=== PATIENT | male | born 1990 | race Caucasian/White ===

== ENCOUNTER 2017-06-22 19:02 | Observation (INO) | payer OTHER ==
[~2017-06-22] VITALS: Ht 182.9 cm; Wt 82.0 kg
[2017-06-23] VITALS (10 sets, daily range): BP systolic 124–147; BP diastolic 60–77; PULSE 68–88; RESP 17–20; Ht 182.9 cm; Wt 82.0 kg
[2017-06-23] MEDS ORDERED: HYDR28.39 RC (01:07)
[2017-06-23] MEDS ORDERED: LACT1CAP72 PO (01:07)
[2017-06-23] MEDS ORDERED: IBUP50DR52 PO (01:07)
[2017-06-23] MEDS ORDERED: OXYC-438 PO (01:07)
[2017-06-23] MEDS ORDERED: CLON0.5T4 PO (01:07)
[2017-06-23] MEDS ORDERED: CANA1000R PR (01:07)
[2017-06-23] MEDS ORDERED: CATTTS1 TD (01:07)
[2017-06-23] MEDS ORDERED: ALBU90AE INHALATION (01:07)
[2017-06-23] MEDS ORDERED: ESCI10TA PO (01:07)
[2017-06-23] MEDS ORDERED: ALBUTEROL 0.083% (NEB) 2.5 MG/3 ML AMP HHN PRN (01:30)
[2017-06-23] MEDS ORDERED: ONDANSETRON 4 MG TAB PO PRN (03:00)
[2017-06-23] MEDS ORDERED: BISACODYL (EC) 5 MG TAB PO PRN (03:00)
[2017-06-23] MEDS ORDERED: ACETAMINOPHEN 325 MG TAB PO PRN (03:00)
[2017-06-23] MEDS ORDERED: DOCUSATE SODIUM 100 MG CAP PO PRN (03:00)
[2017-06-23] MEDS ORDERED: NACL 0.9% 3 ML SYG IV SCH (03:00)
[2017-06-23] MEDS ORDERED: LORAZEPAM 2 MG INJ IV PRN (05:00)
[2017-06-23] MEDS: FAMOTIDINE 20 MG TAB PO SCH ×2 (05:27→20:40)
[2017-06-23] MEDS: ALBUTEROL 0.083% (NEB) 2.5 MG/3 ML AMP HHN SCH ×4 (06:09→20:02)
[2017-06-23 07:34] LABS: BASOPHILS % 0.2 % (0.0-2.0); EOSINOPHILS % 0.1 % (0.0-7.0); HEMATOCRIT 37.5 % (42.0-52.0); HEMOGLOBIN 13.2 g/dl (14.0-18.0); LYMPHOCYTES # 0.8 10^3/ul (0.8-2.9); LYMPHOCYTES % 6.7 % (15.0-51.0); MEAN CORPUSCULAR HEMOGLOBIN 32.8 pg (29.0-33.0); MEAN CORPUSCULAR HGB CONC 35.2 g/dl (32.0-37.0); MEAN CORPUSCULAR VOLUME 93.1 fl (82.0-101.0); MEAN PLATELET VOLUME 10.6 fl (7.4-10.4); MONOCYTE # 0.6 10^3/ul (0.3-0.9); MONOCYTES % 5.7 % (0.0-11.0); NEUTROPHIL # 9.9 10^3/ul (1.6-7.5); PLATELET COUNT 178 10^3/UL (140-415); RED BLOOD COUNT 4.03 10^6/ul (4.70-6.10); RED CELL DISTRIBUTION WIDTH 11.6 % (11.5-14.5); WHITE BLOOD COUNT 11.3 10^3/ul (4.8-10.8)
[2017-06-23 08:02] LABS: CALCIUM 9.1 mg/dl (8.4-10.2); CHOL/HDL RATIO 2.4 RATIO; CREATININE 0.94 mg/dl (0.61-1.24); POTASSIUM 3.8 mmol/L (3.5-5.1)
[2017-06-23 08:23] LABS: THYROID STIMULATING HORMONE 0.223 MIU/L (0.465-4.680)
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
[2017-06-23] MEDS: predniSONE 20 MG TAB PO SCH (09:09)
[2017-06-23] MEDS ORDERED: ALBUTEROL HFA 8 GM INHALER INH PRN (09:30)
[2017-06-23] MEDS ORDERED: IBUPROFEN 600 MG TAB PO PRN (09:30)
[2017-06-23] MEDS ORDERED: CLONIDINE 0.1 MG/24 HR PATCH TRANSDERM SCH (09:30)
--- NOTE | 2017-06-23 10:01 | PN ---
Date/Time of Note Date/Time of Note DATE: 06/23/17 TIME: 09:57 Assessment/Plan VTE Prophylaxis VTE Prophylaxis Intervention: SCD's Lines/Catheters IV Catheter Type (from Nrs): Saline Lock Urinary Cath still in place: No Assessment/Plan Assessment/Plan 27 yo M with pmhx heroin, anxiety, asthma admitted for wheezing 2/2 asthma exacerbation PLAN #asthma: steroids, nebs, flu swab. CXR at OSH clear. no compelling indication for abx #anxiety: cont home meds of seroquel qHS, Klonopin TID, clonidine patch, Lexapro #proctitis: cont home meds (steroids, mesalamine) #heroin abuse: SW consult, HIV and Hepatitis screen FEN: general diet prophx: DVT Subjective 24 Hr Interval Summary Free Text/Dictation still very wheezy. Re h/o heroin abuse, states he has been injecting daily. went to treatment in April but has since relapsed Exam/Review of Systems Vital Signs Vitals Vital Signs Date Time Temp Pulse Resp B/P Pulse Ox O2 Delivery O2 Flow Rate FiO2 06/23/17 08:06 77 06/23/17 07:23 97.6 20 124/63 95 Exam nad, sitting up in bed +very wheezy in all lung burk abd soft no mrg no rashes no edema Results Result Diagram: 06/23/17 0634 06/23/17 0634 Results 24 hrs Laboratory Tests Test 06/23/17 06:34 White Blood Count 11.3 H Red Blood Count 4.03 L Hemoglobin 13.2 L Hematocrit 37.5 L Mean Corpuscular Volume 93.1 Mean Corpuscular Hemoglobin 32.8 Mean Corpuscular Hemoglobin Concent 35.2 Red Cell Distribution Width 11.6 Platelet Count 178 Mean Platelet Volume 10.6 H Neutrophils % 87.0 H Lymphocytes % 6.7 L Monocytes % 5.7 Eosinophils % 0.1 Basophils % 0.2 Nucleated Red Blood Cells % 0.0 Neutrophils # 9.9 H Lymphocytes # 0.8 Monocytes # 0.6 Eosinophils # 0.0 Basophils # 0.0 Nucleated Red Blood Cells # 0.0 Sodium Level 141 Potassium Level 3.8 Chloride Level 103 Carbon Dioxide Level 28 Anion Gap 14 Blood Urea Nitrogen 12 Creatinine 0.94 Glucose Level 150 Hemoglobin A1c 5.3 Calcium Level 9.1 Magnesium Level 2.0 Triglycerides Level 46 Cholesterol Level 96 L LDL Cholesterol, Calculated 48 HDL Cholesterol 39 Cholesterol/HDL Ratio 2.4 Thyroid Stimulating Hormone (TSH) 0.223 L Medications Medications Current Medications Ondansetron HCl (Zofran Tab) 4 mg Q6H PRN PO NAUSEA AND/OR VOMITING; Start 06/28 at 03:00 Acetaminophen (Tylenol Tab) 650 mg Q6H PRN PO PAIN LEVEL 1-3 OR FEVER; Start 06/23/17 at 03:00 Docusate Sodium (Colace) 100 mg Q12H PRN PO CONSTIPATION; Start 06/23/17 at 03 :00 Bisacodyl (Dulcolax) 5 mg DAILY PRN PO CONSTIPATION; Start 06/23/17 at 03:00 Famotidine (Pepcid) 20 mg Q12 PO Last administered on 06/23/17 05:27; Admin Dose 20 MG; Start 06/23/17 at 03:00 Prednisone (Prednisone) 40 mg DAILY PO Last administered on 06/23/17 09:09; Admin Dose 40 MG; Start 06/23/17 at 09:00; Stop 06/28/17 at 08:59 Lorazepam (Ativan) 1 mg Q4 PRN IV AGITATION/ANXIETY; Start 06/23/17 at 05:00 Clonazepam (Klonopin) 0.5 mg TID PO ; Start 06/23/17 at 13:00 Clonidine HCl (Catapres-Tts 1 Patch) 1 patch Q7D TRANSDERM ; Start 06/23/17 at 09:30 Escitalopram Oxalate (Lexapro) 10 mg DAILY PO ; Start 06/24/17 at 09:00 Hydrocortisone (Proctozone-Hc) 1 applic DAILY NE ; Start 06/24/17 at 09:00 Mesalamine (Canasa Supp) 1,000 mg Q12H NE ; Start 06/23/17 at 09:30 Miscellaneous Information 2 puff Q4 PRN INHALATION SHORTNESS OF BREATH; Start 06/23/17 at 09:30; Status UNV Miscellaneous Information 600 mg TID PRN PO PAIN; Start 06/23/17 at 09:30; Status UNV Miscellaneous Information 1 each DAILY PO ; Start 06/24/17 at 09:00; Status UNV Quetiapine Fumarate (Seroquel) 400 mg QHS PO ; Start 06/23/17 at 21:00; Status KUSH VENEGAS MD Jun 23, 2017 10:01
[2017-06-23] MEDS: MESALAMINE 1000 MG SUPP PR SCH ×2 (11:20→21:30)
[2017-06-23 13:23] LABS: HEPATITIS B CORE ANTIBODY NEGATIVE (NEGATIVE)
[2017-06-23] MEDS: clonAZEPAM 0.5 MG TAB PO SCH ×2 (13:57→20:40)
[2017-06-23 16:54] LABS: BENZODIAZEPINES Positive (NEGATIVE); CANNABINOIDS Negative (NEGATIVE)
[2017-06-23 17:15] LABS: BARBITURATES Negative (NEGATIVE); COCAINE Negative (NEGATIVE); OPIATES Positive (NEGATIVE)
[2017-06-23] MEDS ORDERED: LORAZEPAM 1 MG TAB PO PRN (17:30)
[2017-06-23] MEDS ORDERED: DIAZEPAM 2 MG TAB PO PRN (17:30)
[2017-06-23] MEDS ORDERED: QUETIAPINE 100 MG TAB PO SCH (21:00)
[2017-06-23] MEDS: LORAZEPAM 1 MG TAB PO PRN (21:57)
[2017-06-24] MEDS: ALBUTEROL 0.083% (NEB) 2.5 MG/3 ML AMP HHN SCH ×4 (00:18→13:30)
[2017-06-24 02:51] VITALS: BP 131/68; RESP 18
[2017-06-24] MEDS ORDERED: HYDROCORTISONE 2.5% 30 GM RECT CR PR SCH (09:00)
[2017-06-24] MEDS ORDERED: LACTOBACILLUS RHAMNOSUS CAP PO SCH (09:00)
[2017-06-24] MEDS ORDERED: ESCITALOPRAM 10 MG TAB PO SCH (09:00)
[2017-06-24] MEDS: MESALAMINE 1000 MG SUPP PR SCH (09:30)
[2017-06-24] MEDS: LORAZEPAM 1 MG TAB PO PRN (09:57)
[2017-06-24] MEDS: predniSONE 20 MG TAB PO SCH (09:57)
[2017-06-24] MEDS: FAMOTIDINE 20 MG TAB PO SCH (09:57)
[2017-06-24] MEDS: clonAZEPAM 0.5 MG TAB PO SCH ×2 (09:57→12:17)
[2017-06-24] MEDS ORDERED: ALBU90AE INHALATION (14:10)
[2017-06-24] MEDS ORDERED: QUET100T32 PO (14:10)
[2017-06-24] MEDS ORDERED: DIVA250T60 PO (14:10)
[2017-06-24] MEDS ORDERED: PRED20TA PO (14:10)
--- NOTE | 2017-06-24 14:17 | PDOCDIS ---
Discharge Instructions CONDITION Patient Condition: Stable HOME CARE INSTRUCTIONS: Special Diet: regular FOLLOW UP/APPOINTMENTS Follow-up Plan Please use the resources provided by the social work program coordinator to set up an appointment with an fire crew specialist in the community. As we discussed, you should have your Depakote/valproate level checked in 2 weeks time by either a mental health provider or your regular doctor. If you experience any worsening agitation, any tremors, or headaches while on this medication, please contact your mental health medication prescriber or regular doctor immediately. If you can not reach either of these people, present to the nearest emergency room. Please try to avoid using illegal drugs. If you experience thoughts of hurting yourself or anyone else, please call 911 immediately. KUSH LAWSON MD Jun 24, 2017 14:17
--- NOTE | 2017-06-24 14:19 | DS ---
Date/Time of Note Date/Time of Note DATE: 06/24/17 TIME: 14:18 Discharge Summary Admission/Discharge Info Admit Date/Time Jun 22, 2017 at 23:57 Discharge Date/Time Discharge Diagnosis acute on chronic asthma exacerbation, polysubstance abuse, dysphoric anshul Patient Condition: Stable Consults psychiatry Procedures UTox + for opiates, amphetamines, benzos Hx of Present Illness Chief complaint: Shortness of breath 2 days This is a 27-year-old male who was transferred from [facility] with symptoms of shortness of breath 2 days. Patient was diagnosed with an asthma exacerbation at the facility. Patient states that he has been experiencing wheezing as well as shortness of breath. Denies any chest pain or fevers. Patient does state that he has been expensive from cough productive of green sputum. Denies any fevers. Any sick contacts. He does state that he most recently used IV heroin approximately 3 days ago. Hospital Course Pt's asthma exacerbation was managed with a steroid burst and breathing treatments. Breathing returned to baseline and wheezing resolved. During pt's first full day in the hospital he stated he had been using IV heroin, amphetamines, and Xanax daily for the past 2 months. By that evening pt was agitated and was showing signs/symptoms of polysubstance withdrawal. Opiate withdrawal managed with clonidine, benzo withdrawal managed with Ativan. To help determine a safe and effective psychotropic discharge medication regimen, telepsych consult was obtained. Psychiatrist's evaluation suggestive of dysphoric anshul. Psychiatrist advised starting pt on Depakote to help with mood stabilization. He also advised stopping the Klonopin given how low the dose was. These changes were implemented and their rationale was explained to the patient prior to discharge. Prior to discharge director social service also saw pt and provided community resources for polysubstance abuse. Copy of this discharge summary included in patient's discharge paperwork. Home Meds Active Scripts Divalproex Sodium* (Depakote*) 250 Mg Tablet.dr, 750 MG PO DAILY for 30 Days, # 90 TAB Prov:KUSH LAWSON MD 06/24/17 Prednisone* (Prednisone*) 20 Mg Tab, 40 MG PO DAILY for 3 Days, #3 TAB Prov:KUSH LAWSON MD 06/24/17 Quetiapine Fumarate* (Quetiapine Fumarate*) 100 Mg Tablet, 400 MG PO QHS for 30 Days, #30 TAB Prov:KUSH LAWSON MD 06/24/17 Albuterol Sulfate (Proair Respiclick) 90 Mcg Aer.pow.ba, 2 PUFF INHALATION Q4 Y for SHORTNESS OF BREATH, #1 BOTTLE Prov:KUSH LAWSON MD 06/24/17 Reported Medications Mesalamine* (Canasa*) 1,000 Mg Supp, 1000 MG MD HS, SUPP.RECT 06/23/17 Lactobacillus Acidophilus (Acidophilus Lactobacilli) 1 Each Capsule, 1 EACH PO DAILY, CAP 06/23/17 Ibuprofen (Ibuprofen) 50 Mg/1.25 Ml Drops.susp, 600 MG PO TID Y for PAIN, ML 06/23/17 Hydrocortisone (PROCTOSOL-HC) 28.35 Gm Cream..g., 28.35 GM RC 06/23/17 Escitalopram Oxalate* (Lexapro*) 10 Mg Tablet, 10 MG PO DAILY, #30 TAB 06/23/17 Clonidine Patch (CATAPRES PATCH) 0.1 Mg/24 Hr Patch, 1 PATCH TD Q7D, #4 PATCH.WK 06/23/17 Discontinued Reported Medications Oxycodone HCl/Acetaminophen (Oxycodone-Acetaminophen 5-325) 1 Each Tablet, 1 EACH PO Q6 Y for PAIN, TAB 06/23/17 Clonazepam* (Clonazepam*) 0.5 Mg Tablet, 0.5 MG PO TID, TAB 06/23/17 Follow-up Plan Please use the resources provided by the director social service to set up an appointment with an animal control specialist in the community. As we discussed, you should have your Depakote/valproate level checked in 2 weeks time by either a mental health provider or your regular doctor. If you experience any worsening agitation, any tremors, or headaches while on this medication, please contact your mental health medication prescriber or regular doctor immediately. If you can not reach either of these people, present to the nearest emergency room. Please try to avoid using illegal drugs. If you experience thoughts of hurting yourself or anyone else, please call 911 immediately. Primary Care Provider Not On Staff Doctor Time spent on discharge: > 30 minutes Pending Labs Laboratory Tests Test 06/23/17 15:40 Urine Opiates Screen Positive (NEGATIVE) Urine Barbiturates Negative (NEGATIVE) Urine Amphetamines Screen Positive (NEGATIVE) Urine Benzodiazepines Screen Positive (NEGATIVE) Urine Cocaine Screen Negative (NEGATIVE) Urine Cannabinoids Negative (NEGATIVE) KUSH LAWSON MD Jun 24, 2017 14:19
--- NOTE | 2017-06-24 15:24 | PSY ---
Date/Time of Note Date/Time of Note DATE: 06/24/17 TIME: 13:40 Psychiatric Subjective Eval Subjective Evaluation History of present illness This is a 27 year old male who presented to the ED with complaints of an asthma attack. While undergoing treatment he demonstrated signs of withdrawal from heroin. He shared that he has a history of polysubstance dependence, heroin, benzodiazepine and methamphetamine. He states that he has been to rehab at least 10 times. His most recent was 2 months ago. He left and immediately relapsed. A psychiatric consult was requested as the discharging hospitalist was concerned about prescribing medications as part of his discharge plan. The patient states that he has had a long standing history of rapid mood swings , characterized by episodes of agitation associated with racing negative intrusive thoughts, inability to sleep, increase in risk taking and impulsive behaviors. He also experiences episodes of marked depression associated with anhedonia, lack of motivation and thoughts that life is not worth living. During the interview, he was calm, cooperative, and interested in having his symptoms of racing thoughts, sleep disturbance and anxiety to be addressed. He suicidal ideation intent or plan. Substance Use History: He states that he has been dependent on heroin for several years. Past psychiatric history States that he has been treated for symptoms of bipolar disorder for a considerable period of time. He has been prescribed Quetiapine 400mg po pm, Lexapro 10mg daily, and Clonazepam 0.5mg tid. Family History Mother has a history of depression and anxiety. Medical history Suggest Depakote 750mg po daily, to address dysphoric manic symptoms. Continue Quetiapine 400mg po hs, Lexapro 10mg daily. Discontinue Clonazepam (due to history of benzodiazepine abuse). Refer to methadone or suboxone treatment. Suggest residential treatment for his problems with substance dependence. 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 Psychiatric Objective Eval Review of Systems: Review of Systems: Applicable Constitutional: Normal Eyes: Normal ENT: Normal Neck: Normal Respiratory: Normal Chest/Breast: Normal Cardiovascular: Normal GI: Normal Genitourinary: Normal Skin: Normal Lymphatic: Normal Musculoskeletal: Normal Neurological: Normal Physical Examination: Physical Examination: Applicable Sleep: Insomnia Appetite: Decreased, Weight Loss Energy: Decreased Mental Status Examination: Appearance: Groomed Eye Contact: Good Psychomotor Activity: Normal Behavior: Cooperative Speech: Clear AFFECT: Appropriate Mood: Appropriate/Full, Anxious Though Process: Linear Thought Content: Normal Suicidal: No Homicidal: No On 72 hour hold: No Orientation: x4 Cognition: Alert Insight: Intact Judgement: Intact Attention Span: Intact Laboratory Results Laboratory Tests Test 06/23/17 06:30 06/23/17 06:34 06/23/17 15:40 Hepatitis B Surface Antigen NEGATIVE Hepatitis B Surface Antibody NEGATIVE Hepatitis B Core Total Antibody NEGATIVE Hepatitis C Antibody NEGATIVE HIV (1&2) Antibody NEGATIVE White Blood Count 11.310^3/ul Red Blood Count 4.0310^6/ul Hemoglobin 13.2g/dl Hematocrit 37.5% Mean Corpuscular Volume 93.1fl Mean Corpuscular Hemoglobin 32.8pg Mean Corpuscular Hemoglobin Concent 35.2g/dl Red Cell Distribution Width 11.6% Platelet Count 30250^3/UL Mean Platelet Volume 10.6fl Neutrophils % 87.0% Lymphocytes % 6.7% Monocytes % 5.7% Eosinophils % 0.1% Basophils % 0.2% Nucleated Red Blood Cells % 0.0/100WBC Neutrophils # 9.910^3/ul Lymphocytes # 0.810^3/ul Monocytes # 0.610^3/ul Eosinophils # 0.010^3/ul Basophils # 0.010^3/ul Nucleated Red Blood Cells # 0.010^3/ul Sodium Level 141mmol/L Potassium Level 3.8mmol/L Chloride Level 103mmol/L Carbon Dioxide Level 28mmol/L Anion Gap 14 Blood Urea Nitrogen 12mg/dl Creatinine 0.94mg/dl Glucose Level 150mg/dl Hemoglobin A1c 5.3% Calcium Level 9.1mg/dl Magnesium Level 2.0mg/dl Triglycerides Level 46mg/dl Cholesterol Level 96mg/dl LDL Cholesterol, Calculated 48mg/dl HDL Cholesterol 39mg/dl Cholesterol/HDL Ratio 2.4RATIO Thyroid Stimulating Hormone (TSH) 0.223MIU/L Urine Opiates Screen Positive Urine Barbiturates Negative Urine Amphetamines Screen Positive Urine Benzodiazepines Screen Positive Urine Cocaine Screen Negative Urine Cannabinoids Negative Assessment and Plan Assessment/Diagnosis [place] I: F31.63 Bipolar disorder, mixed, severe without psychotic features. 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 [place] V: 60 Recommendation/Plan Medication Management Depakote 750mg daily. He should be informed about the importance of obtaining therapeutic range. When to obtain a blood test, as well as what blood tests should be performed, while taking this medication. He purpose of this medication is to treat his dysphoric manic symptoms, and to reduce any risk from benzodiazepine withdrawal. He should be advised to have Methadone or Suboxone maintenance. Follow-up/Disposition He should follow up with whomever is prescribing his current medications. He should follow through with outpatient treatment recommendations that has been provided to him. 5150 Recommendation: He is not a danger to himself or others, and has reported a plan to care for himself. GORDO VILLA MD Jun 24, 2017 15:14
== END 2017-06-24 14:52 | disposition home or self-care (01) ==
LOC: MS4 23:57 → INTOOBSV 23:57 → PP2 06-23 13:22
PROVIDERS: ADMIT Internal Medicine; ATTEND Internal Medicine
DX: J45.901 Unspecified asthma with (acute) exacerbation (principal); F19.10 Other psychoactive substance abuse, uncomplicated; F31.63 Bipolar disorder, current episode mixed, severe, without psychotic features; F11.20 Opioid dependence, uncomplicated; F13.20 Sedative, hypnotic or anxiolytic dependence, uncomplicated; F15.20 Other stimulant dependence, uncomplicated
CPT/HCPCS: 80048; 80061; 80307; 83036; 83735; 84443; 85025; 86703; 86704; 86706; 86803; 87340; 87400; 94640; 94664; J7512; L3260; Z7500; Z7610; 99217; G0378

== ENCOUNTER 2018-03-05 10:09 | Inpatient (IN) | END 2018-03-05 21:21 | disposition left against medical advice (07) | DRG 202 ==

== ENCOUNTER 2018-03-09 00:03 | Emergency (ER) | END 2018-03-09 02:56 | disposition home or self-care (01) ==